=== PATIENT | male | born 1930 | race Caucasian/White ===

== ENCOUNTER 2019-09-22 11:53 | Observation (INO) | payer MEDICARE ==
[2019-09-22] MEDS ORDERED: fentaNYL 100 mcg/2 ml 50 MCG/ML VIAL ONE (12:51)
[2019-09-22] MEDS ORDERED: Midazolam 5 mg/5 ml VIAL 1 mg/ml 5 ml VIAL (5 mg) ONE (12:51)
[2019-09-22] MEDS ORDERED: Naloxone 0.4 mg VIAL 0.4 mg/ml 1 ml VIAL ONE (12:52)
[2019-09-22] MEDS ORDERED: Flumazenil 0.5 mg/5 ml 0.1 MG/ML 5 ml VIAL ONE (12:52)
[2019-09-22] MEDS ORDERED: Lidocaine 1% VIAL 10 MG/ML VIAL ONE (12:52)
[2019-09-22] MEDS ORDERED: Diazepam 5 mg TAB (*) ONE (12:58)
[2019-09-22] MEDS ORDERED: Diazepam 5 mg TAB (*) PO ONE (13:00)
[2019-09-22] MEDS ORDERED: ceFAZolin* 2 GM* ONE DOSE (Duplex) IVPB (13:00)
[2019-09-22] MEDS ORDERED: ceFAZolin VIAL 1 GM in NS *SYRINGE * * 10 ML ONE (13:00)
[2019-09-22] MEDS ORDERED: NS 0.9% 1000 ml BAG 1,000 ML IV SCH (13:15)
[2019-09-22] MEDS ORDERED: oxyCODONE/Acetamin 5/325 mg TAB PO PRN (14:14)
[2019-09-22 20:03] LABS: ABS Basophils 0.1 10^3/ul (0-0.2); ABS Eosinophils 0.3 10^3/ul (0-0.6); ABS Lymphocytes 1.8 10^3/ul (1.0-4.8); ABS Monocytes 0.9 10^3/ul (0-0.8); Eosinophil % 4.1 %; Hematocrit 35 % (42-52); Hemoglobin 11.8 g/dL (14.0-18.0); Lymphocyte % 27.2 %; Mean Corpuscular HGB Conc 34 g/dL (31-36); Mean Corpuscular Hemoglobin 37 pg (27-31); Mean Corpuscular Volume 109 fL (80-94); Mean Platelet Volume 8.4 fL (7.4-10.4); Platelet Count 221 10^3/uL (150-450); Red Blood Count 3.17 10^6 /uL (4.18-5.48); Red Cell Distribution Width 14 % (10-15); White Blood Count 6.6 10^3/uL (3.5-10.8)
[2019-09-22 20:20] LABS: Albumin 3.3 g/dL (3.2-5.2); Albumin/Globulin Ratio 1.6 (1-3); Calcium 8.7 mg/dL (8.6-10.3); EGFR African American 68.8 (>60); EGFR Non-African American 56.9 (>60); Globulin 2.1 g/dL (2-4); Magnesium 1.9 mg/dL (1.9-2.7); Potassium 3.6 mmol/L (3.5-5.0); Total Bilirubin 0.6 mg/dL (0.2-1.0); Total Protein 5.4 g/dL (6.4-8.9)
[2019-09-22] MEDS ORDERED: Aspirin EC 81 mg TAB.EC (enteric coated) PO SCH (21:00)
[2019-09-22] MEDS: ceFAZolin VIAL 1 GM in NS 0.9% 50 ML 50 ML IVPB SCH (21:30)
[2019-09-22] MEDS ORDERED: Potassium Chlor 20 meq TAB.ER PO ONE (21:30)
[2019-09-23] MEDS: ceFAZolin VIAL 1 GM in NS 0.9% 50 ML 50 ML IVPB SCH (05:42)
[2019-09-23 07:50] VITALS: BP 172/87
[2019-09-23] MEDS ORDERED: Meloxicam 7.5 mg TAB (NF) PO SCH (09:00)
[2019-09-23] MEDS ORDERED: Polyethylene Glycol 3350 17 GM PACKET PO SCH (09:00)
== END 2019-09-23 10:50 | disposition home or self-care (01) ==
LOC: CHICATH 11:53 → MEDTELE 14:14
PROVIDERS: ADMIT Specialist; ATTEND Specialist

== ENCOUNTER 2020-11-03 17:33 | Observation (INO) ==
[2020-11-03 19:12] LABS: Hematocrit 26 % (42-52); Mean Corpuscular HGB Conc 35 g/dL (31-36); Mean Corpuscular Hemoglobin 42 pg (27-31); Mean Corpuscular Volume 119 fL (80-94); Red Blood Count 2.15 10^6 /uL (4.18-5.48); Red Cell Distribution Width 17 % (10-15)
[2020-11-03 19:21] LABS: ALT 9 U/L (7-52); AST 11 U/L (13-39); Albumin 3.9 g/dL (3.2-5.2); Albumin/Globulin Ratio 1.6 (1-3); Alkaline Phosphatase 108 U/L (34-104); Anion Gap 7 mmol/L (2-11); Blood Urea Nitrogen 25 mg/dL (6-24); C Reactive Protein 11.02 mg/L (<8.01); CO2 Carbon Dioxide 26 mmol/L (22-32); Calcium 8.6 mg/dL (8.6-10.3); Chloride 106 mmol/L (101-111); EGFR African American 83.6 (>60); EGFR Non-African American 69.1 (>60); Globulin 2.4 g/dL (2-4); Glucose 140 mg/dL (70-100); Potassium 3.8 mmol/L (3.5-5.0); Sodium 139 mmol/L (135-145); Total Protein 6.3 g/dL (6.4-8.9)
[2020-11-03 19:22] LABS: Troponin I 0.04 ng/mL (<0.03)
[2020-11-03 20:57] LABS: ABS Lymphocytes 0.5 10^3/ul (1.0-4.8); ABS Monocytes 0.1 10^3/ul (0-0.8); ABS Neutrophils 1.5 10^3/ul (1.5-7.7); Eosinophil % 0.3 %; Lymphocyte % 22.3 %; Mean Platelet Volume 8.2 fL (7.4-10.4); Nucleated Red Blood Cells % 0.1; Platelet Count 87 10^3/uL (150-450)
[2020-11-03] MEDS ORDERED: Albuterol HFA INHALER 8 gm MDI INH PRN (21:47)
[2020-11-03] MEDS ORDERED: Cyanocobalamin INJ 1,000 MCG/ML VIAL 1 ML VIAL IM ONE (21:59)
[2020-11-03] MEDS: Mometasone/Formoter 200/5 MDI INH SCH (22:02)
[2020-11-03 22:18] LABS: Urine Appearance Clear; Urine Bilirubin Negative (Negative); Urine Blood Negative (Negative); Urine Color Yellow; Urine Glucose Negative (Negative); Urine Ketones Negative (Negative); Urine Nitrite Negative (Negative); Urine Protein Negative (Negative); Urine Specific Gravity 1.015 (1.002-1.030); Urine Urobilinogen Negative (Negative)
[2020-11-03 22:22] LABS: % Iron Saturation 60 % (15-55); Iron 163 ug/dL (50-212); LDH 151 U/L (140-271); Total Iron Binding Capacity 272 mcg/dL (250-450); Transferrin 194 mg/dL (203-362); Unsaturated Iron Binding 109 ug/dL
[2020-11-03 22:25] LABS: Corrected Retic Count 0.6 % (0.5-1.5); Hematocrit for Retic CNT 26 % (42-52); Immature Retic Fraction 0.34; RBC Retic Count 2.17 10^6/uL (4.18-5.48)
[2020-11-03 22:37] LABS: Troponin I 0.08 ng/mL (<0.03)
[2020-11-03 22:37] LABS: INR 1.13 (0.82-1.09)
[2020-11-03 22:42] LABS: Ferritin 309.5 ng/mL (24-336)
[2020-11-03 23:58] LABS: Uric Acid 6.6 mg/dL (4.4-7.6)
[2020-11-04 01:13] LABS: Troponin I 0.09 ng/mL (<0.03)
[2020-11-04 05:31] LABS: ABS Lymphocytes 0.8 10^3/ul (1.0-4.8); ABS Neutrophils 1.6 10^3/ul (1.5-7.7); Hematocrit 23 % (42-52); Hemoglobin 7.9 g/dL (14.0-18.0); Lymphocyte % 32.6 %; Mean Corpuscular HGB Conc 34 g/dL (31-36); Mean Corpuscular Hemoglobin 41 pg (27-31); Mean Corpuscular Volume 120 fL (80-94); Nucleated Red Blood Cells % 0.1; Platelet Count 85 10^3/uL (150-450); Red Blood Count 1.94 10^6 /uL (4.18-5.48); Red Cell Distribution Width 17 % (10-15); White Blood Count 2.5 10^3/uL (3.5-10.8)
[2020-11-04 05:45] LABS: Anion Gap 4 mmol/L (2-11); Blood Urea Nitrogen 26 mg/dL (6-24); CO2 Carbon Dioxide 28 mmol/L (22-32); Calcium 8.2 mg/dL (8.6-10.3); Chloride 107 mmol/L (101-111); EGFR African American 86.5 (>60); EGFR Non-African American 71.5 (>60); Glucose 111 mg/dL (70-100); Sodium 139 mmol/L (135-145)
[2020-11-04] MEDS ORDERED: Perflutren Lipid Microsphere 3 ML VIAL ONE (08:01)
[2020-11-04] MEDS: Mometasone/Formoter 200/5 MDI INH SCH (08:34)
[2020-11-04] MEDS ORDERED: Polyethylene Glycol 3350 17 GM PACKET PO SCH (09:00)
[2020-11-04] MEDS ORDERED: Aspirin EC 325 mg TAB.EC PO SCH (09:00)
[2020-11-04 09:38] LABS: Troponin I 0.08 ng/mL (<0.03)
[2020-11-04 10:51] LABS: Folate > 20.00 ng/mL (5.90-24.80)
[2020-11-04] MEDS ORDERED: Regadenoson 0.4 MG/5 ML SYRINGE ONE (11:00)
[2020-11-04] MEDS ORDERED: Aminophylline 25 MG/ML VIAL ONE (11:02)
[2020-11-04] MEDS ORDERED: Ondansetron 4 mg VIAL 2 MG/ML 2 ml VIAL ONE (11:41)
[2020-11-04] MEDS ORDERED: Isosorbide Mononit ER 30mg TAB PO SCH (14:00)
[2020-11-04 17:32] VITALS: BP 112/46
[2020-11-05 19:02] LABS: Copper Level 1.17 mcg/mL (0.75-1.45)
== END 2020-11-04 18:15 | disposition home or self-care (01) ==
LOC: MEDTELE 17:33 → ED 17:33 → MEDTELE 11-04 07:28
PROVIDERS: ADMIT Internal Medicine; ATTEND Hospitalist